=== PATIENT | male | born 1970 | race Caucasian/White ===

== ENCOUNTER 2016-12-04 14:34 | Inpatient (IN) | payer OTHER ==
[2016-12-04 15:09] VITALS: BMI 25.0
--- NOTE | 2016-12-04 17:15 | HP ---
CIWA Score - CIWA Score Nausea/Vomitin Muscle Tremors: 3 Anxiety: 3 Agitation: 3 Paroxysmal Sweats: 2 Orientation: 0-Oriented Tacttile Disturbances: 2-Mild Itch/Numbness/Burn Auditory Disturbances: 2-Mild Harshness/Frighten Visual Disturbances: 2-Mild Sensitivity Headache: 2-Mild CIWA-Ar Total Score: 22 Admission ROS BHS - HPI Chief Complaint: i need help to stop drinking alcohol and heroin,mmtp 90 mgs/day,last medicated [facility] 05/18 completed anxiety and insomnia has take home bottle tor 12/05/16 no significant period of sobriety Allergies/Adverse Reactions: Allergies Allergy/AdvReac Type Severity Reaction Status Date / Time No Known Allergies Allergy Verified 12/04/16 16:36 History of Present Illness: this 46 years old male with alcohol dependence,heroin abused,mmtp 90 mgs/day, seeking detox as mentioned Exam Limitations: No Limitations - Ebola screening Have you traveled outside of the country in the last 21 days: No Have you had contact with anyone from an Ebola affected area: No Have you been sick,other than usual withdrawal symptoms: No Do you have a fever: No - Review of Systems Constitutional: Loss of Appetite, Malaise, Night Sweats, Changes in sleep, Weakness EENT: reports: Nose Congestion Respiratory: reports: No Symptoms reported Cardiac: reports: No Symptoms Reported GI: reports: Nausea, Vomiting, Abdominal cramping : reports: No Symptoms Reported Musculoskeletal: reports: Back Pain, Muscle Pain Integumentary: reports: Dryness Neuro: reports: No Symptoms reported Endocrine: reports: No Symptoms Reported Hematology: reports: No Symptoms Reported Psychiatric: reports: No Sypmtoms Reported, Judgement Intact, Mood/Affect Appropiate, Orientated x3 (insomnia), Anxious Patient History - Patient Medical History Hx Anemia: No Hx Asthma: No Hx Chronic Obstructive Pulmonary Disease (COPD): No Hx Cancer: No Hx Cardiac Disorders: No Hx Congestive Heart Failure: No Hx Hypertension: No Hx Hypercholesterolemia: No Hx Pacemaker: No HX Cerebrovascular Accident: No Hx Seizures: No Hx Dementia: No Hx Diabetes: No Hx Gastrointestinal Disorders: No Hx Liver Disease: No Hx Genitourinary Disorders: No Hx Sexually Transmitted Disorders: No Hx Renal Disease (ESRD): No Hx Thyroid Disease: No Hx Human Immunodeficiency Virus (HIV): No (last 11/15 negative) Hx Hepatitis C: No Hx Depression: No Hx Suicide Attempt: No Hx Bipolar Disorder: No Hx Schizophrenia: No Other Medical History: anxiety,insomnia,no suicidal,no homicidal - Patient Surgical History Past Surgical History: No - PPD History Previous Implant?: Yes (HAS TAKE HOME BOTTLE FOR 12/05/16) Documented Results: Negative w/o proof Implanted On Prior [facility] Admission?: No PPD to be Administered?: Yes - Smoking Cessation Smoking history: Current every day smoker Have you smoked in the past 12 months: Yes Aproximately how many cigarettes per day: 10 Hx Chewing Tobacco Use: No Initiated information on smoking cessation: Yes 'Breaking Loose' booklet given: 12/04/16 - Substance & Tx. History Hx Alcohol Use: Yes Hx Substance Use: Yes Substance Use Type: Alcohol, Heroin Hx Substance Use Treatment: Yes (06/18 [facility]) - Substances Abused Heroin Route: Injection Frequency: 3-6 times per week Amount used: 5 bags Age of first use: 37 Date of Last Use: 12/03/16 Alcohol Route: Oral Frequency: Daily Amount used: beer(3-4 24 oz cans) Age of first use: 9 Date of Last Use: 12/04/16 Family Disease History - Family Disease History Family History: Denies Admission Physical Exam S - Vital Signs Vital Signs: Vital Signs - 24 hr 12/04/16 15:06 Temperature 97 F L Pulse Rate 81 Respiratory 20 Rate Blood Pressure 144/96 - Physical General Appearance: Yes: Moderate Distress, Tremorous, Irritable, Sweating, Anxious HEENTM: Yes: Normal ENT Inspection, Normocephalic, ERICA, Pharynx Normal Respiratory: Yes: Lungs Clear, Normal Breath Sounds, No Respiratory Distress Neck: Yes: Within Normal Limits, Supple, Trachea in good position Breast: Yes: Within Normal Limits Cardiology: Yes: Within Normal Limits, Regular Rhythm, Regular Rate, S1, S2 Abdominal: Yes: Within Normal Limits, Normal Bowel Sounds, Non Tender, Flat, Soft Genitourinary: Yes: Within Normal Limits Back: Yes: Muscle Spasm Musculoskeletal: Yes: Back pain, Muscle Pain Extremities: Yes: Tremors Neurological: Yes: Within Normal Limits, hat former II-XII NML intact, Fully Oriented, Alert, Motor Strength 5/5 Integumentary: Yes: Dry - Diagnostic (1) Alcohol dependence with uncomplicated withdrawal Current Visit: Yes Status: Acute (2) Anxiety Current Visit: Yes Status: Acute (3) Insomnia Current Visit: Yes Status: Acute (4) Methadone maintenance therapy patient Current Visit: Yes Status: Acute (5) Nicotine dependence Current Visit: Yes Status: Acute Cleared for Admission [facility] - Detox or Rehab [facility] Level of Care: Medically Managed Detox Regimen/Protocol: Librium [facility] Breath Alcohol Content Breath Alcohol Content: 0 Urine Drug Screen - Results Drug Screen Negative: No Urine Drug Screen Results: OPI-Opiates, BZO-Benzodiazepines, MTD-Methadone
[2016-12-04] MEDS ORDERED: MAGNESIUM HYDROX 2400MG/30ML ORAL SUSPENSION 30 ML CUP PO PRN (17:25)
[2016-12-04] MEDS ORDERED: P-EPHED 60MG/TRIPROLIDI 2.5MG TABLET PO PRN (17:25)
[2016-12-04] MEDS ORDERED: MAG HYDROX/AL HYDROX/SIMETH 30 ML UNIT-DOSE CUP PO PRN (17:25)
[2016-12-04] MEDS ORDERED: LOPERAMIDE HCL 2 MG CAPSULE PO PRN (17:25)
[2016-12-04] MEDS ORDERED: guaiFENesin/D-METHORPHAN HB 10 ML UNIT-DOSE CUPS PO PRN (17:25)
[2016-12-04] MEDS ORDERED: MAGNESIUM CITRATE 300 ML BOTTLE PO PRN (17:25)
[2016-12-04] MEDS ORDERED: ACETAMINOPHEN 325 MG TABLET (FP) PO PRN (17:25)
[2016-12-04] MEDS ORDERED: IBUPROFEN 400 MG TABLET (FP) PO PRN (17:25)
[2016-12-04] MEDS ORDERED: MENTHOL/PHENOL 1 EACH UD MM PRN (17:25)
[2016-12-04] MEDS ORDERED: chlordiazePOXIDE HCL 25 MG CAPSULE PO PRN (17:25)
[2016-12-04] MEDS: chlordiazePOXIDE HCL 25 MG CAPSULE PO SCH (22:23)
[2016-12-04] MEDS: diphenhydrAMINE HCL 50 MG CAPSULE PO PRN (22:23)
[2016-12-04] MEDS: THIAMINE HCL 100 MG TABLET (FP) PO SCH (22:23)
[2016-12-04 22:53] LABS: URINE APPEARANCE CLEAR; URINE BILIRUBIN NEGATIVE (NEGATIVE); URINE BLOOD NEGATIVE (NEGATIVE); URINE COLOR YELLOW; URINE GLUCOSE (UA) NEGATIVE (NEGATIVE); URINE KETONE 2+ (NEGATIVE); URINE LEUK ESTERASE NEGATIVE (NEGATIVE); URINE NITRITE NEGATIVE (NEGATIVE); URINE PROTEIN NEGATIVE (NEGATIVE); URINE UROBILINOGEN NEGATIVE mg/dL (0.2-1.0)
[2016-12-05] MEDS: chlordiazePOXIDE HCL 25 MG CAPSULE PO SCH ×4 (05:49→22:10)
[2016-12-05] MEDS ORDERED: METHADONE HCL 10 MG TABLET ONE (05:51)
[2016-12-05] MEDS ORDERED: METHADONE HCL 40 MG DISPERSABLE TABLET ONE (05:52)
[2016-12-05] MEDS ORDERED: METHADONE HCL 10 MG TABLET PO ONE (06:00)
[2016-12-05] MEDS ORDERED: METHADONE 80 MG, METHADONE 10 MG PO ONE (06:00)
[2016-12-05 09:26] LABS: MCH 29.3 pg (25.7-33.7); MCHC 33.8 g/dl (32.0-35.9); MEAN CELL VOLUME 86.5 fl (80-96); MEAN PLT VOLUME 8.6 fl (7.5-11.1); RDW 13.7 % (11.9-15.9); WHITE BLOOD COUNT 6.9 K/mm3 (4.0-10.0)
[2016-12-05 09:44] LABS: PLATELET COUNT 235 K/MM3 (134-434); PLATELET ESTIMATE ADEQUATE (NORMAL)
[2016-12-05 10:06] LABS: ALBUMIN 3.4 g/dl (3.4-5.0); ALK PHOS 94 U/L (45-117); ANION GAP 7 (8-16); BILIRUBIN,TOTAL 0.4 mg/dL (0.2-1.0); CALCIUM 8.6 mg/dL (8.5-10.1); CO2 28 mmol/L (21-32); CREATININE 0.7 mg/dL (0.7-1.3); GLUCOSE,RANDOM 96 mg/dL (74-106); SGOT/AST 26 U/L (15-37); SGPT/ALT 26 U/L (12-78)
[2016-12-05] MEDS: PRENATAL VITAMINS W/ FOLIC ACID TABLET (FP) PO SCH (10:21)
--- NOTE | 2016-12-05 12:51 | PN ---
S CIWA - CIWA Score Nausea/Vomitin Muscle Tremors: 4-Moderate,w/Arms Extend Anxiety: 4-Mod. Anxious/Guarded Agitation: 4-Moderately Restless Paroxysmal Sweats: 3 Orientation: 0-Oriented Tacttile Disturbances: 1-Very Mild Itch/Numbness Auditory Disturbances: 0-None Visual Disturbances: 0-None Headache: 2-Mild CIWA-Ar Total Score: 21 BHS Progress Note (SOAP) Subjective: Sweating, nausea, chills, tremors, interrupted sleep Objective: 12/05/16 12:49 Last Vital Signs Temp Pulse Resp BP Pulse Ox 98.2 F 73 18 113/71 12/05/16 10:13 12/05/16 10:13 12/05/16 10:13 12/05/16 10:13 Laboratory Tests 12/04/16 12/05/16 12/05/16 22:40 07:40 07:40 WBC 6.9 RBC 4.54 Hgb 13.3 Hct 39.3 MCV 86.5 MCH 29.3 MCHC 33.8 RDW 13.7 Plt Count 235 MPV 8.6 Platelet Estimate Adequate Platelet Comment No clumping noted Sodium 139 Potassium 3.8 Chloride 104 Carbon Dioxide 28 Anion Gap 7 L BUN 11 Creatinine 0.7 Creat Clearance w eGFR > 60 Random Glucose 96 Calcium 8.6 Total Bilirubin 0.4 AST 26 ALT 26 Alkaline Phosphatase 94 Total Protein 7.0 Albumin 3.4 Urine Color Yellow Urine Appearance Clear Urine pH 6.0 Ur Specific [place] 1.025 Urine Protein Negative Urine Glucose (UA) Negative Urine Ketones 2+ H Urine Blood Negative Urine Nitrite Negative Urine Bilirubin Negative Urine Urobilinogen Negative Ur Leukocyte Esterase Negative Labs noted Assessment: 12/05/16 12:49 Withdrawal symptoms Plan: Continue detox Encouraged to drink lots of water for hydration Admission PPD ordered
[2016-12-05] MEDS: THIAMINE HCL 100 MG TABLET (FP) PO SCH (22:10)
[2016-12-05] MEDS: diphenhydrAMINE HCL 50 MG CAPSULE PO PRN (22:11)
[2016-12-06] MEDS: chlordiazePOXIDE HCL 25 MG CAPSULE PO SCH ×3 (05:36→17:27)
[2016-12-06] MEDS ORDERED: METHADONE HCL 10 MG TABLET PO SCH (09:00)
[2016-12-06] MEDS ORDERED: METHADONE HCL 10 MG TABLET ONE (09:14)
[2016-12-06] MEDS ORDERED: METHADONE HCL 40 MG DISPERSABLE TABLET ONE (09:15)
[2016-12-06] MEDS: METHADONE 80 MG, METHADONE 10 MG PO SCH (09:27)
[2016-12-06] MEDS: PRENATAL VITAMINS W/ FOLIC ACID TABLET (FP) PO SCH (09:28)
--- NOTE | 2016-12-06 12:10 | PN ---
[facility] CIWA - CIWA Score Nausea/Vomitin-No Nausea/No Vomiting Muscle Tremors: 3 Anxiety: 4-Mod. Anxious/Guarded Agitation: 1-Slight > Activity Paroxysmal Sweats: 3 Orientation: 0-Oriented Tacttile Disturbances: 2-Mild Itch/Numbness/Burn Auditory Disturbances: 1-Very Mild Visual Disturbances: 3-Moderate Sensitivity Headache: 0-None Present CIWA-Ar Total Score: 17 BHS Progress Note (SOAP) Subjective: Tremors, Interrupted sleep, Sweating, Diarrhea,Stomach Cramping, Body Aches. Objective: PT. A & O X 3. NO ACUTE DISTRESS. 12/06/16 12:08 Vital Signs Temperature 97.2 F L 12/06/16 09:02 Pulse Rate 59 L 12/06/16 09:02 Respiratory Rate 18 12/06/16 09:02 Blood Pressure 121/79 12/06/16 09:02 O2 Sat by Pulse Oximetry (%) Laboratory Tests 12/04/16 12/05/16 12/05/16 22:40 07:40 07:40 WBC 6.9 RBC 4.54 Hgb 13.3 Hct 39.3 MCV 86.5 MCH 29.3 MCHC 33.8 RDW 13.7 Plt Count 235 MPV 8.6 Platelet Estimate Adequate Platelet Comment No clumping noted Sodium 139 Potassium 3.8 Chloride 104 Carbon Dioxide 28 Anion Gap 7 L BUN 11 Creatinine 0.7 Creat Clearance w eGFR > 60 Random Glucose 96 Calcium 8.6 Total Bilirubin 0.4 AST 26 ALT 26 Alkaline Phosphatase 94 Total Protein 7.0 Albumin 3.4 Urine Color Yellow Urine Appearance Clear Urine pH 6.0 Ur Specific [place] 1.025 Urine Protein Negative Urine Glucose (UA) Negative Urine Ketones 2+ H Urine Blood Negative Urine Nitrite Negative Urine Bilirubin Negative Urine Urobilinogen Negative Ur Leukocyte Esterase Negative RPR Titer 12/05/16 07:40 WBC RBC Hgb Hct MCV MCH MCHC RDW Plt Count MPV Platelet Estimate Platelet Comment Sodium Potassium Chloride Carbon Dioxide Anion Gap BUN Creatinine Creat Clearance w eGFR Random Glucose Calcium Total Bilirubin AST ALT Alkaline Phosphatase Total Protein Albumin Urine Color Urine Appearance Urine pH Ur Specific [place] Urine Protein Urine Glucose (UA) Urine Ketones Urine Blood Urine Nitrite Urine Bilirubin Urine Urobilinogen Ur Leukocyte Esterase RPR Titer Nonreactive LABS NOTED. Assessment: 12/06/16 12:09 WITHDRAWAL SYMPTOMS. Plan: CONTINUE DETOX.
--- NOTE | 2016-12-06 16:43 | CONSULT ---
[facility] Psychiatric Consult - Data Date of interview: 12/06/16 Admission source: [facility] Identifying data: First admission to [facility] for this 46 y/o male seeking detox treatment on for opiod and alcohol dependence.Patient is ,a father of three,domiciled (lives with an aunt),unemployed and supported on food stamps. Substance Abuse History: Discussed in session.Mr Bazan confirms this report : Smoking Cessation. Smoking history: Current every day smoker. Have you smoked in the past 12 months: Yes. Aproximately how many cigarettes per day: 10. Hx Chewing Tobacco Use: No. Initiated information on smoking cessation: Yes. ' Breaking Loose' booklet given: 12/04/16. - Substance & Tx. History. Hx Alcohol Use: Yes. Hx Substance Use: Yes. Substance Use Type: Alcohol, Heroin. Hx Substance Use Treatment: Yes (06/18 [facility]). - Substances Abused. Heroin. Route: Injection. Frequency: 3-6 times per week. Amount used: 5 bags. Age of first use: 37. Date of Last Use: 12/03/16. Alcohol. Route: Oral. Frequency: Daily. Amount used: beer(3-4 24 oz cans). Age of first use: 9. Date of Last Use: 12/04/16 Medical History: History of skin cancer. Psychiatric History: No reported history of psychiatric hospitalizations.Mr Bazan is currently on methadone maintenance (daily dose = 90 mg). Physical/Sexual Abuse/Trauma History: Patient denies. Additional Comment: Urine Drug Screen Results: OPI-Opiates, BZO-Benzodiazepines , MTD-Methadone.Noted. Mental Status Exam - Mental Status Exam Alert and Oriented to: Time, Place, Person Cognitive Function: Good Patient Appearance: Disheveled Mood: Nervous, Withdrawn Affect: Constricted Patient Behavior: Fatigued, Appropriate, Cooperative Speech Pattern: Clear Voice Loudness: Normal Thought Process: Intact, Goal Oriented Thought Disorder: Not Present Hallucinations: Denies Suicidal Ideation: Denies Homicidal Ideation: Denies Insight/Judgement: Fair Sleep: Poorly, Difficulty falling asleep Appetite: Fair Muscle strength/Tone: Normal Gait/Station: Normal Psychiatric Findings - Problem List ([place] 1, 2,3) (1) Alcohol dependence with uncomplicated withdrawal Status: Acute (2) Opioid dependence on agonist therapy Status: Acute (3) Nicotine dependence Status: Acute Qualifiers: Nicotine product type: cigarettes Substance use status: in withdrawal Qualified Code(s): F17.213 - Nicotine dependence, cigarettes, with withdrawal (4) Substance induced mood disorder Status: Acute (5) Insomnia Status: Acute - Initial Treatment Plan Initial Treatment Plan: Psychoeducation.Detoxification.Ambien 10 mg po hs prn.Patient is made aware of potential for parasomnias.
[2016-12-06] MEDS: THIAMINE HCL 100 MG TABLET (FP) PO SCH (22:34)
[2016-12-06] MEDS: chlordiazePOXIDE 5 MG CAPSULE PO SCH (22:34)
[2016-12-06] MEDS: ZOLPIDEM TARTRATE 10 MG TABLET (PARK CARE ONLY) PO PRN (22:34)
[2016-12-07] MEDS ORDERED: METHADONE HCL 40 MG DISPERSABLE TABLET ONE (04:42)
[2016-12-07] MEDS ORDERED: METHADONE HCL 10 MG TABLET ONE (04:42)
[2016-12-07] MEDS: METHADONE 80 MG, METHADONE 10 MG PO SCH (05:05)
[2016-12-07] MEDS: chlordiazePOXIDE 5 MG CAPSULE PO SCH ×3 (05:05→17:13)
[2016-12-07] MEDS: PRENATAL VITAMINS W/ FOLIC ACID TABLET (FP) PO SCH (10:06)
--- NOTE | 2016-12-07 10:33 | PN ---
S Progress Note (SOAP) Subjective: DECREASED ANXIETY,SWEATS,TREMORS. Objective: 12/07/16 10:32 Vital Signs Temperature 97.3 F L 12/07/16 09:12 Pulse Rate 82 12/07/16 09:12 Respiratory Rate 18 12/07/16 09:12 Blood Pressure 147/96 12/07/16 09:12 O2 Sat by Pulse Oximetry (%) Laboratory Last Values WBC 6.9 K/mm3 (4.0-10.0) 12/05/16 07:40 RBC 4.54 M/mm3 (4.00-5.60) 12/05/16 07:40 Hgb 13.3 GM/dL (11.7-16.9) 12/05/16 07:40 Hct 39.3 % (35.4-49) 12/05/16 07:40 MCV 86.5 fl (80-96) 12/05/16 07:40 MCH 29.3 pg (25.7-33.7) 12/05/16 07:40 MCHC 33.8 g/dl (32.0-35.9) 12/05/16 07:40 RDW 13.7 % (11.9-15.9) 12/05/16 07:40 Plt Count 235 K/MM3 (134-434) 12/05/16 07:40 MPV 8.6 fl (7.5-11.1) 12/05/16 07:40 Platelet Estimate Adequate (NORMAL) 12/05/16 07:40 Platelet Comment No clumping noted 12/05/16 07:40 Sodium 139 mmol/L (136-145) 12/05/16 07:40 Potassium 3.8 mmol/L (3.5-5.1) 12/05/16 07:40 Chloride 104 mmol/L (98-107) 12/05/16 07:40 Carbon Dioxide 28 mmol/L (21-32) 12/05/16 07:40 Anion Gap 7 (8-16) L 12/05/16 07:40 BUN 11 mg/dL (7-18) 12/05/16 07:40 Creatinine 0.7 mg/dL (0.7-1.3) 12/05/16 07:40 Creat Clearance w eGFR > 60 (>60) 12/05/16 07:40 Random Glucose 96 mg/dL (74-106) 12/05/16 07:40 Calcium 8.6 mg/dL (8.5-10.1) 12/05/16 07:40 Total Bilirubin 0.4 mg/dL (0.2-1.0) 12/05/16 07:40 AST 26 U/L (15-37) 12/05/16 07:40 ALT 26 U/L (12-78) 12/05/16 07:40 Alkaline Phosphatase 94 U/L (45-117) 12/05/16 07:40 Total Protein 7.0 g/dl (6.4-8.2) 12/05/16 07:40 Albumin 3.4 g/dl (3.4-5.0) 12/05/16 07:40 Urine Color Yellow 12/04/16 22:40 Urine Appearance Clear 12/04/16 22:40 Urine pH 6.0 (5.0-8.0) 12/04/16 22:40 Ur Specific [place] 1.025 (1.005-1.025) 12/04/16 22:40 Urine Protein Negative (NEGATIVE) 12/04/16 22:40 Urine Glucose (UA) Negative (NEGATIVE) 12/04/16 22:40 Urine Ketones 2+ (NEGATIVE) H 12/04/16 22:40 Urine Blood Negative (NEGATIVE) 12/04/16 22:40 Urine Nitrite Negative (NEGATIVE) 12/04/16 22:40 Urine Bilirubin Negative (NEGATIVE) 12/04/16 22:40 Urine Urobilinogen Negative mg/dL (0.2-1.0) 12/04/16 22:40 Ur Leukocyte Esterase Negative (NEGATIVE) 12/04/16 22:40 RPR Titer Nonreactive (NONREACTIVE) 12/05/16 07:40 Assessment: 12/07/16 10:33 WITHDRAWAL SX Plan: CONTINUE DETOX
[2016-12-07] MEDS: ZOLPIDEM TARTRATE 10 MG TABLET (PARK CARE ONLY) PO PRN (22:06)
[2016-12-07] MEDS: chlordiazePOXIDE HCL 10 MG CAPSULE PO SCH (22:06)
[2016-12-07] MEDS: THIAMINE HCL 100 MG TABLET (FP) PO SCH (22:06)
[2016-12-08] MEDS ORDERED: METHADONE HCL 40 MG DISPERSABLE TABLET ONE (04:48)
[2016-12-08] MEDS ORDERED: METHADONE HCL 10 MG TABLET ONE (04:48)
[2016-12-08] MEDS: METHADONE 80 MG, METHADONE 10 MG PO SCH (05:14)
[2016-12-08] MEDS: chlordiazePOXIDE HCL 10 MG CAPSULE PO SCH (05:43)
[2016-12-08 06:24] VITALS: BP 98/62; PULSE 64; TEMP 97
--- NOTE | 2016-12-08 13:16 | DS ---
[facility] Detox Discharge Summary Admission Date: 12/04/16 Discharge Date: 12/08/16 - History Present History: Alcohol Dependence, MMTP Additional Comments: DETOX COMPLETED. PT LEFT EARLIER THIS MORNING. PT TO F/U WITH PCP AT [facility] Pertinent Past History: ANXIETY DEPRESSION INSOMNIA - Physical Exam Results Vital Signs: Vital Signs Temperature 97 F L 12/08/16 06:23 Pulse Rate 64 12/08/16 06:23 Respiratory Rate 18 12/08/16 06:23 Blood Pressure 98/62 12/08/16 06:23 O2 Sat by Pulse Oximetry (%) Pertinent Admission Physical Exam Findings: WITHDRAWAL SX Laboratory Last Values WBC 6.9 K/mm3 (4.0-10.0) 12/05/16 07:40 RBC 4.54 M/mm3 (4.00-5.60) 12/05/16 07:40 Hgb 13.3 GM/dL (11.7-16.9) 12/05/16 07:40 Hct 39.3 % (35.4-49) 12/05/16 07:40 MCV 86.5 fl (80-96) 12/05/16 07:40 MCH 29.3 pg (25.7-33.7) 12/05/16 07:40 MCHC 33.8 g/dl (32.0-35.9) 12/05/16 07:40 RDW 13.7 % (11.9-15.9) 12/05/16 07:40 Plt Count 235 K/MM3 (134-434) 12/05/16 07:40 MPV 8.6 fl (7.5-11.1) 12/05/16 07:40 Platelet Estimate Adequate (NORMAL) 12/05/16 07:40 Platelet Comment No clumping noted 12/05/16 07:40 Sodium 139 mmol/L (136-145) 12/05/16 07:40 Potassium 3.8 mmol/L (3.5-5.1) 12/05/16 07:40 Chloride 104 mmol/L (98-107) 12/05/16 07:40 Carbon Dioxide 28 mmol/L (21-32) 12/05/16 07:40 Anion Gap 7 (8-16) L 12/05/16 07:40 BUN 11 mg/dL (7-18) 12/05/16 07:40 Creatinine 0.7 mg/dL (0.7-1.3) 12/05/16 07:40 Creat Clearance w eGFR > 60 (>60) 12/05/16 07:40 Random Glucose 96 mg/dL (74-106) 12/05/16 07:40 Calcium 8.6 mg/dL (8.5-10.1) 12/05/16 07:40 Total Bilirubin 0.4 mg/dL (0.2-1.0) 12/05/16 07:40 AST 26 U/L (15-37) 12/05/16 07:40 ALT 26 U/L (12-78) 12/05/16 07:40 Alkaline Phosphatase 94 U/L (45-117) 12/05/16 07:40 Total Protein 7.0 g/dl (6.4-8.2) 12/05/16 07:40 Albumin 3.4 g/dl (3.4-5.0) 12/05/16 07:40 Urine Color Yellow 12/04/16 22:40 Urine Appearance Clear 12/04/16 22:40 Urine pH 6.0 (5.0-8.0) 12/04/16 22:40 Ur Specific [place] 1.025 (1.005-1.025) 12/04/16 22:40 Urine Protein Negative (NEGATIVE) 12/04/16 22:40 Urine Glucose (UA) Negative (NEGATIVE) 12/04/16 22:40 Urine Ketones 2+ (NEGATIVE) H 12/04/16 22:40 Urine Blood Negative (NEGATIVE) 12/04/16 22:40 Urine Nitrite Negative (NEGATIVE) 12/04/16 22:40 Urine Bilirubin Negative (NEGATIVE) 12/04/16 22:40 Urine Urobilinogen Negative mg/dL (0.2-1.0) 12/04/16 22:40 Ur Leukocyte Esterase Negative (NEGATIVE) 12/04/16 22:40 RPR Titer Nonreactive (NONREACTIVE) 12/05/16 07:40 - Treatment Hospital Course: Detox Protocol Followed, Detoxed Safely, Responded well Patient has Accepted a Rehab Referral to: REFERRED TO [facility], [facility] - Medication Discharge Medications: Ambulatory Orders Methadone [Dolophine -] 90 mg PO DAILY 12/04/16 - Diagnosis (1) Alcohol dependence with uncomplicated withdrawal Status: Acute (2) Methadone maintenance therapy patient Status: Acute (3) Nicotine dependence Status: Acute Qualifiers: Nicotine product type: cigarettes Substance use status: in withdrawal Qualified Code(s): F17.213 - Nicotine dependence, cigarettes, with withdrawal (4) Insomnia Status: Acute (5) Substance induced mood disorder Status: Acute - AMA Did Patient Leave Against Medical Advice: No
--- NOTE | 2016-12-08 14:55 | EKG ---
Test Reason : Blood Pressure : / mmHG Vent. Rate : 053 BPM Atrial Rate : 053 BPM P-R Int : 156 ms QRS Dur : 104 ms QT Int : 486 ms P-R-T Axes : 052 -03 026 degrees QTc Int : 456 ms SINUS BRADYCARDIA WITH SINUS ARRHYTHMIA INCOMPLETE RIGHT BUNDLE BRANCH BLOCK BORDERLINE ECG NO PREVIOUS ECGS AVAILABLE Confirmed by ALEXANDER BUSTOS MD ([id number]) on 12/08/2016 2:54:31 PM Referred By: Confirmed By:ALEXANDER BUSTOS MD
== END 2016-12-08 06:40 | disposition home or self-care (01) | DRG 773 ==
LOC: YASAS 14:34 → Y3N 17:15
PROVIDERS: ADMIT Internal Medicine; ATTEND Internal Medicine
PROC: HZ2ZZZZ Detoxification Services for Substance Abuse Treatment (ICD-10-PCS; principal; 2016-12-04)
DX: F10.230 Alcohol dependence with withdrawal, uncomplicated (principal); F11.20 Opioid dependence, uncomplicated; F17.210 Nicotine dependence, cigarettes, uncomplicated; F19.24 Other psychoactive substance dependence with psychoactive substance-induced mood disorder; F41.9 Anxiety disorder, unspecified; G47.00 Insomnia, unspecified; Z85.828 Personal history of other malignant neoplasm of skin; Z59.0 Homelessness
CPT/HCPCS: 36415; 80053; 81003; 85027; 86593; 93005; 93010

== ENCOUNTER 2017-09-27 13:37 | Inpatient (IN) | payer OTHER ==
[2017-09-27 15:52] VITALS: BMI 29.7
--- NOTE | 2017-09-27 18:23 | HP ---
CIWA Score - CIWA Score Nausea/Vomitin Muscle Tremors: 2 Anxiety: 3 Agitation: 3 Paroxysmal Sweats: 2 Orientation: 0-Oriented Tacttile Disturbances: 2-Mild Itch/Numbness/Burn (numbness on both hands) Auditory Disturbances: 0-None Visual Disturbances: 0-None Headache: 0-None Present CIWA-Ar Total Score: 15 Admission ROS BHS - HPI Chief Complaint: withdrawal symptoms Allergies/Adverse Reactions: Allergies Allergy/AdvReac Type Severity Reaction Status Date / Time No Known Allergies Allergy Verified 12/04/16 16:36 History of Present Illness: Patient is a 47 yo male with hx of IV heroin, alcohol, xanax, klonopin, an alcohol. MMTP at [facility] on 15 mg dose, patient was given take home bottles for 09/25/17 and 09/26/17 and reports did not attend MMTP program today to get medicated. PMHX: right achilles chronic pain, depression, anxiety. Denies suicidal / homicidal ideation or suicide attempts. Exam Limitations: No Limitations - Ebola screening Have you traveled outside of the country in the last 21 days: No Have you had contact with anyone from an Ebola affected area: No Have you been sick,other than usual withdrawal symptoms: No Do you have a fever: No - Review of Systems Constitutional: Chills, Loss of Appetite, Changes in sleep EENT: reports: No Symptoms Reported Respiratory: reports: No Symptoms reported Cardiac: reports: No Symptoms Reported GI: reports: Diarrhea, Nausea, Poor Fluid Intake, Vomiting : reports: No Symptoms Reported Musculoskeletal: reports: No Symptoms Reported Integumentary: reports: No Symptoms Reported Neuro: reports: See HPI, Numbness Endocrine: reports: Increased Thirst Hematology: reports: No Symptoms Reported Psychiatric: reports: Orientated x3, Agitated Other Systems: Reviewed and Negative Patient History - Patient Medical History Hx Anemia: No Hx Asthma: No Hx Chronic Obstructive Pulmonary Disease (COPD): No Hx Cancer: No Hx Cardiac Disorders: No Hx Congestive Heart Failure: No Hx Hypertension: No Hx Hypercholesterolemia: No Hx Pacemaker: No HX Cerebrovascular Accident: No Hx Seizures: No Hx Dementia: No Hx Diabetes: No Hx Gastrointestinal Disorders: No Hx Liver Disease: No Hx Genitourinary Disorders: No Hx Sexually Transmitted Disorders: Yes (chlamydia ) Hx Renal Disease (ESRD): No Hx Thyroid Disease: No Hx Human Immunodeficiency Virus (HIV): No ( Last tested a month ago ) Hx Hepatitis C: No Hx Depression: Yes Hx Suicide Attempt: No Hx Bipolar Disorder: No Hx Schizophrenia: No - Patient Surgical History Past Surgical History: No Other Surgical History: skin cancer 30 years ago - PPD History Previous Implant?: Yes Documented Results: Negative w/proof Date: 12/07/16 PPD to be Administered?: No - Smoking Cessation Smoking history: Current every day smoker Have you smoked in the past 12 months: Yes Aproximately how many cigarettes per day: 10 Hx Chewing Tobacco Use: No Initiated information on smoking cessation: Yes 'Breaking Loose' booklet given: 09/27/17 - Substance & Tx. History Hx Alcohol Use: Yes Hx Substance Use: Yes Substance Use Type: Alcohol, Heroin, Opiates, Tranquilizers Hx Substance Use Treatment: Yes ([facility] 12/04/17 - 12/08/16) - Substances Abused Heroin Route: Injection Frequency: Daily Amount used: 5 bags Age of first use: 37 Date of Last Use: 09/26/17 Alprazolam (Xanax) Route: Oral Frequency: Daily Amount used: 2 - 4 mg Age of first use: 30 Date of Last Use: 09/25/17 Benzodiazepine (Klonopin) Route: Oral Frequency: Daily Amount used: 2 -4 mg Age of first use: 47 Date of Last Use: 09/24/17 Alcohol Route: Oral Frequency: Daily Amount used: 4 x 12 oz Age of first use: 9 Date of Last Use: 09/26/17 Family Disease History - Family Disease History Family History: Unable to Obtain Admission Physical Exam [facility] - Vital Signs Vital Signs: Vital Signs - 24 hr 09/27/17 15:50 Temperature 96.9 F L Pulse Rate 63 Respiratory 18 Rate Blood Pressure 102/60 - Physical General Appearance: Yes: Appropriately Dressed, Irritable, Sweating, Anxious HEENTM: Yes: EOMI, Hearing grossly Normal, Normal ENT Inspection, Normocephalic , Normal Voice, ERICA, Pharynx Normal, Tm's normal, Rhinorrhea Respiratory: Yes: Chest Non-Tender, Lungs Clear, Normal Breath Sounds, No Respiratory Distress, No Accessory Muscle Use Neck: Yes: Within Normal Limits Breast: Yes: Breast Exam Deferred Cardiology: Yes: Regular Rhythm, Regular Rate Abdominal: Yes: Normal Bowel Sounds, Non Tender, Flat, Soft Genitourinary: Yes: Within Normal Limits Back: Yes: Normal Inspection Musculoskeletal: Yes: full range of Motion, Gait Steady, Pelvis Stable, Other ( ambulates with cane) Extremities: Yes: Normal Capillary Refill, Normal Inspection, Normal Range of Motion, Non-Tender Neurological: Yes: publications inspector II-XII NML intact, Fully Oriented, Alert, Motor Strength 5/5, Depressed Affect Integumentary: Yes: Normal Color, Warm, Diaphoresis Lymphatic: Yes: Within Normal Limits - Diagnostic (1) Sedative, hypnotic or anxiolytic dependence with withdrawal, unspecified Current Visit: Yes Status: Acute (2) IV drug user Current Visit: Yes Status: Acute (3) Alcohol dependence with uncomplicated withdrawal Current Visit: Yes Status: Acute (4) Anxiety Current Visit: Yes Status: Acute (5) Nicotine dependence Current Visit: Yes Status: Acute Qualifiers: Nicotine product type: cigarettes Substance use status: in withdrawal Qualified Code(s): F17.213 - Nicotine dependence, cigarettes, with withdrawal (6) Opioid dependence on agonist therapy Current Visit: Yes Status: Acute Comment: Methadone 15 mg at [facility] dose pending verification Cleared for Admission [facility] - Detox or Rehab [facility] Level of Care: Medically Managed Detox Regimen/Protocol: Valium [facility] Breath Alcohol Content Breath Alcohol Content: 0 Urine Drug Screen - Results Drug Screen Negative: No Urine Drug Screen Results: OPI-Opiates, BZO-Benzodiazepines, MTD-Methadone
[2017-09-27] MEDS ORDERED: P-EPHED 60MG/TRIPROLIDI 2.5MG TABLET PO PRN (18:38)
[2017-09-27] MEDS ORDERED: MAG HYDROX/AL HYDROX/SIMETH 30 ML UNIT-DOSE CUP PO PRN (18:38)
[2017-09-27] MEDS ORDERED: NICOTINE POLACRILEX 2 MG GUM BC PRN (18:38)
[2017-09-27] MEDS ORDERED: diazePAM 5 MG TABLET PO ONE (18:38)
[2017-09-27] MEDS ORDERED: MAGNESIUM CITRATE 300 ML BOTTLE PO PRN (18:38)
[2017-09-27] MEDS ORDERED: MAGNESIUM HYDROX 2400MG/30ML ORAL SUSPENSION 30 ML CUP PO PRN (18:38)
[2017-09-27] MEDS ORDERED: IBUPROFEN 400 MG TABLET (FP) PO PRN (18:38)
[2017-09-27] MEDS ORDERED: guaiFENesin/D-METHORPHAN HB 10 ML UNIT-DOSE CUPS PO PRN (18:38)
[2017-09-27] MEDS ORDERED: hydrOXYzine PAMOATE 50 MG CAPSULE (FP) PO PRN (18:38)
[2017-09-27] MEDS ORDERED: ACETAMINOPHEN 325 MG TABLET (FP) PO PRN (18:38)
[2017-09-27] MEDS ORDERED: MENTHOL/PHENOL 1 EACH UD MM PRN (18:38)
[2017-09-27] MEDS ORDERED: MELATONIN 5 MG TABLETS PO PRN (22:00)
[2017-09-27] MEDS: THIAMINE HCL 100 MG TABLET (FP) PO SCH (23:15)
[2017-09-27] MEDS: diazePAM 5 MG TABLET PO SCH (23:15)
[2017-09-28 02:55] LABS: URINE APPEARANCE CLOUDY; URINE BILIRUBIN NEGATIVE (<2.0 mg/dL); URINE COLOR AMBER; URINE GLUCOSE (UA) NEGATIVE (NEGATIVE); URINE KETONE TRACE (NEGATIVE); URINE LEUK ESTERASE NEGATIVE (NEGATIVE); URINE NITRITE NEGATIVE (NEGATIVE)
[2017-09-28 03:05] LABS: URINE PROTEIN 1+ (NEGATIVE)
[2017-09-28 03:23] LABS: URINE BACTERIA MANY /hpf (NONE SEEN); URINE HYALINE CAST 146 /lpf; URINE MUCUS MANY
[2017-09-28] MEDS: diazePAM 5 MG TABLET PO SCH ×3 (05:09→22:03)
[2017-09-28] MEDS: diazePAM 5 MG TABLET PO PRN ×3 (06:49→18:19)
[2017-09-28] MEDS: METHADONE HCL 5 MG TABLET PO SCH (10:00)
[2017-09-28] MEDS: PRENATAL VITAMINS W/ FOLIC ACID TABLET (FP) PO SCH (10:00)
[2017-09-28] MEDS: NICOTINE 14 MG/24 HOURS TOPICAL PATCH TD SCH (10:02)
[2017-09-28 10:39] LABS: HEMATOCRIT 41.6 % (35.4-49); HEMOGLOBIN 14.3 GM/dL (11.7-16.9); MCH 29.8 pg (25.7-33.7); MCHC 34.4 g/dl (32.0-35.9); MEAN CELL VOLUME 86.6 fl (80-96); MEAN PLT VOLUME 8.3 fl (7.5-11.1); PLATELET COUNT 274 K/MM3 (134-434); RDW 14.2 % (11.9-15.9); WHITE BLOOD COUNT 8.5 K/mm3 (4.0-10.0)
[2017-09-28 10:47] LABS: ALBUMIN 4.1 g/dl (3.4-5.0); ANION GAP 9 (8-16); BLOOD UREA NITROGEN 14 mg/dL (7-18); CALCIUM 9.1 mg/dL (8.5-10.1); CHLORIDE 103 mmol/L (98-107); CO2 26 mmol/L (21-32); GLUCOSE,RANDOM 101 mg/dL (74-106); POTASSIUM 4.1 mmol/L (3.5-5.1); SGOT/AST 15 U/L (15-37); SGPT/ALT 21 U/L (12-78); SODIUM 138 mmol/L (136-145)
[2017-09-28 10:49] LABS: ALK PHOS 115 U/L (45-117); BILIRUBIN,TOTAL 0.6 mg/dL (0.2-1.0); CREATININE 0.9 mg/dL (0.7-1.3); TOT PROT 8.6 g/dl (6.4-8.2)
--- NOTE | 2017-09-28 13:24 | CONSULT ---
[facility] Psychiatric Consult - Data Date of interview: 09/28/17 Admission source: [facility] Identifying data: First admission to [facility] for this 46 y/o male seeking detox treatment on for opiod and alcohol dependence.Patient is ,a father of three,domiciled (lives with an aunt),unemployed and supported on food stamps. Substance Abuse History: Smoking history: Current every day smoker. Have you smoked in the past 12 months: Yes. Aproximately how many cigarettes per day: 10. Hx Chewing Tobacco Use: No. Initiated information on smoking cessation: Yes. 'Breaking Loose' booklet given: 09/27/17. - Substance & Tx. History. Hx Alcohol Use: Yes. Hx Substance Use: Yes. Substance Use Type: Alcohol, Heroin, Opiates, Tranquilizers. Hx Substance Use Treatment: Yes ([facility] 12/04/17 - 12/08/16) . - Substances Abused. Heroin. Route: Injection. Frequency: Daily. Amount used: 5 bags. Age of first use: 37. Date of Last Use: 09/26/17. Alprazolam (Xanax). Route: Oral. Frequency: Daily. Amount used: 2 - 4 mg. Age of first use: 30. Date of Last Use: 09/25/17. Benzodiazepine (Klonopin) . Route: Oral. Frequency: Daily. Amount used: 2 -4 mg. Age of first use: 47. Date of Last Use: 09/24/17. Alcohol. Route: Oral. Frequency: Daily. Amount used: 4 x 12 oz. Age of first use: 9. Date of Last Use: 09/26/17 Medical History: No reported history of psychiatric hospitalizations.Mr Bazan is currently on methadone maintenance (daily dose = 15 mg) At [facility] program in [facility]. Psychiatric History: Patient denies. Physical/Sexual Abuse/Trauma History: Patient denies. Additional Comment: Urine Drug Screen Results: OPI-Opiates, BZO-Benzodiazepines , MTD-Methadone.Noted. Mental Status Exam - Mental Status Exam Alert and Oriented to: Time, Place, Person Cognitive Function: Good Patient Appearance: Well Groomed Mood: Nervous, Withdrawn, Anxious Affect: Mood Congruent Patient Behavior: Fatigued, Cooperative Speech Pattern: Clear Voice Loudness: Normal Thought Process: Intact, Goal Oriented Thought Disorder: Not Present Hallucinations: Denies Suicidal Ideation: Denies Homicidal Ideation: Denies Insight/Judgement: Poor Sleep: Poorly, Difficulty falling asleep Appetite: Good Muscle strength/Tone: Normal Gait/Station: Other (not observed ; patient stayed in bed for duration of interview) Psychiatric Findings - Problem List ([place] 1, 2,3) (1) Opioid dependence on agonist therapy Current Visit: Yes Status: Acute (2) Alcohol dependence with uncomplicated withdrawal Current Visit: Yes Status: Acute (3) Sedative, hypnotic or anxiolytic dependence with withdrawal, unspecified Current Visit: Yes Status: Acute (4) Nicotine dependence Current Visit: Yes Status: Acute Qualifiers: Nicotine product type: cigarettes Substance use status: in withdrawal Qualified Code(s): F17.213 - Nicotine dependence, cigarettes, with withdrawal (5) Insomnia Current Visit: Yes Status: Acute - Initial Treatment Plan Initial Treatment Plan: Psychoeducation.Sleep hygiene.Detoxification.Ambien 10 mg po hs prn.Patient is made aware of the risk of parasomnias.Agrees to this careplan.Observation.
--- NOTE | 2017-09-28 13:28 | EKG ---
Test Reason : Blood Pressure : / mmHG Vent. Rate : 061 BPM Atrial Rate : 061 BPM P-R Int : 162 ms QRS Dur : 106 ms QT Int : 454 ms P-R-T Axes : 046 009 018 degrees QTc Int : 457 ms SINUS RHYTHM WITH MARKED SINUS ARRHYTHMIA WITH OCCASIONAL PREMATURE VENTRICULAR COMPLEXES INCOMPLETE RIGHT BUNDLE BRANCH BLOCK BORDERLINE ECG WHEN COMPARED WITH ECG OF 04-DEC-2016 17:40, PREMATURE VENTRICULAR COMPLEXES ARE NOW PRESENT Confirmed by LUDMILA PIMENTEL, CARON ([id number]) on 09/28/2017 1:28:12 PM Referred By: Confirmed By:CARON KEYS MD
--- NOTE | 2017-09-28 13:38 | PN ---
S CIWA - CIWA Score Nausea/Vomitin Muscle Tremors: 3 Anxiety: 4-Mod. Anxious/Guarded Agitation: 4-Moderately Restless Paroxysmal Sweats: No Perspiration Orientation: 0-Oriented Tacttile Disturbances: 2-Mild Itch/Numbness/Burn Auditory Disturbances: 0-None Visual Disturbances: 0-None Headache: 0-None Present CIWA-Ar Total Score: 18 BHS Progress Note (SOAP) Subjective: Diarrhea, Vomiting, Stomach Cramping, Tremors, body Aches. Objective: PATIENT A & O X 3, OBSERVED AMBULATING ON UNIT WITH ASSISTANCE OF A CANE. NO ACUTE DISTRESS. 09/28/17 13:34 Vital Signs Temperature 97.5 F L 09/28/17 09:03 Pulse Rate 76 09/28/17 09:03 Respiratory Rate 18 09/28/17 09:03 Blood Pressure 141/87 09/28/17 09:03 O2 Sat by Pulse Oximetry (%) Laboratory Tests 09/27/17 09/28/17 09/28/17 21:04 07:30 07:30 WBC 8.5 RBC 4.80 Hgb 14.3 Hct 41.6 MCV 86.6 MCH 29.8 MCHC 34.4 RDW 14.2 Plt Count 274 MPV 8.3 Sodium 138 Potassium 4.1 Chloride 103 Carbon Dioxide 26 Anion Gap 9 BUN 14 D Creatinine 0.9 D Creat Clearance w eGFR > 60 Random Glucose 101 Calcium 9.1 Total Bilirubin 0.6 D AST 15 D ALT 21 Alkaline Phosphatase 115 D Total Protein 8.6 H D Albumin 4.1 D Urine Color Grisel Urine Appearance Cloudy Urine pH 5.0 Ur Specific [place] 1.021 Urine Protein 1+ H Urine Glucose (UA) Negative Urine Ketones Trace H Urine Blood Negative Urine Nitrite Negative Urine Bilirubin Negative Urine Urobilinogen 2.0 Ur Leukocyte Esterase Negative Urine WBC (Auto) 22 Urine RBC (Auto) 45 Urine Bacteria Many Hyaline Casts 146 Urine Mucus Many LABS NOTED. RPR RESULT PENDING. 09/28/17 13:36 09/28/17 13:37 Assessment: 09/28/17 13:35 WITHDRAWAL SYMPTOMS. Plan: CONTINUE DETOX. PRN IMMODIUM PO FOR DIARRHEA. PRN ZOFRAN SL FOR NAUSEA / VOMITING. INCREASE DAILY PO FLUID INTAKE.
[2017-09-28] MEDS: LOPERAMIDE HCL 2 MG CAPSULE PO PRN (14:08)
[2017-09-28] MEDS: ONDANSETRON *ODT* 4 MG TABLET SL PRN ×2 (14:08→22:04)
[2017-09-28] MEDS: THIAMINE HCL 100 MG TABLET (FP) PO SCH (22:03)
[2017-09-29] MEDS: diazePAM 5 MG TABLET PO PRN ×3 (05:03→20:32)
[2017-09-29] MEDS: METHADONE HCL 5 MG TABLET PO SCH (05:03)
[2017-09-29] MEDS: ONDANSETRON *ODT* 4 MG TABLET SL PRN ×2 (06:12→14:41)
[2017-09-29] MEDS: NICOTINE 14 MG/24 HOURS TOPICAL PATCH TD SCH (10:14)
[2017-09-29] MEDS: PRENATAL VITAMINS W/ FOLIC ACID TABLET (FP) PO SCH (10:14)
[2017-09-29] MEDS: diazePAM 5 MG TABLET PO SCH ×2 (10:14→22:06)
[2017-09-29] MEDS: LOPERAMIDE HCL 2 MG CAPSULE PO PRN (10:15)
--- NOTE | 2017-09-29 10:35 | PN ---
S CIWA - CIWA Score Nausea/Vomitin Muscle Tremors: 3 Anxiety: 4-Mod. Anxious/Guarded Agitation: 2 Paroxysmal Sweats: 1-Minimal Palms Moist Orientation: 0-Oriented Tacttile Disturbances: 0-None Auditory Disturbances: 0-None Visual Disturbances: 0-None Headache: 0-None Present CIWA-Ar Total Score: 15 BHS Progress Note (SOAP) Subjective: ANXIETY,NAUSEA,VOMITING,DIARRHEA. Objective: 09/29/17 10:36 Vital Signs 09/29/17 09/29/17 09/29/17 03:30 05:58 09:10 Temperature 99.5 F 96.9 F L Pulse Rate 68 64 Respiratory 18 18 18 Rate Blood Pressure 133/81 136/91 Laboratory Tests 09/27/17 09/28/17 09/28/17 21:04 07:30 07:30 WBC 8.5 RBC 4.80 Hgb 14.3 Hct 41.6 MCV 86.6 MCH 29.8 MCHC 34.4 RDW 14.2 Plt Count 274 MPV 8.3 Sodium 138 Potassium 4.1 Chloride 103 Carbon Dioxide 26 Anion Gap 9 BUN 14 D Creatinine 0.9 D Creat Clearance w eGFR > 60 Random Glucose 101 Calcium 9.1 Total Bilirubin 0.6 D AST 15 D ALT 21 Alkaline Phosphatase 115 D Total Protein 8.6 H D Albumin 4.1 D Urine Color Grisel Urine Appearance Cloudy Urine pH 5.0 Ur Specific [place] 1.021 Urine Protein 1+ H Urine Glucose (UA) Negative Urine Ketones Trace H Urine Blood Negative Urine Nitrite Negative Urine Bilirubin Negative Urine Urobilinogen 2.0 Ur Leukocyte Esterase Negative Urine WBC (Auto) 22 Urine RBC (Auto) 45 Urine Bacteria Many Hyaline Casts 146 Urine Mucus Many RPR Titer 09/28/17 07:30 WBC RBC Hgb Hct MCV MCH MCHC RDW Plt Count MPV Sodium Potassium Chloride Carbon Dioxide Anion Gap BUN Creatinine Creat Clearance w eGFR Random Glucose Calcium Total Bilirubin AST ALT Alkaline Phosphatase Total Protein Albumin Urine Color Urine Appearance Urine pH Ur Specific [place] Urine Protein Urine Glucose (UA) Urine Ketones Urine Blood Urine Nitrite Urine Bilirubin Urine Urobilinogen Ur Leukocyte Esterase Urine WBC (Auto) Urine RBC (Auto) Urine Bacteria Hyaline Casts Urine Mucus RPR Titer Nonreactive Assessment: 09/29/17 10:36 WITHDRAWAL SX Plan: CONTINUE DETOX ZOFRAN AND IMODIUM PRN GIVE LOMOTIL IF IMODIUN NOT EFFECTIVE.
[2017-09-29] MEDS: ZOLPIDEM TARTRATE 10 MG TABLET (PARK CARE ONLY) PO PRN (22:06)
[2017-09-29] MEDS: THIAMINE HCL 100 MG TABLET (FP) PO SCH (22:06)
[2017-09-30] MEDS: diazePAM 5 MG TABLET PO PRN (06:32)
[2017-09-30] MEDS: ONDANSETRON *ODT* 4 MG TABLET SL PRN (06:32)
[2017-09-30] MEDS: METHADONE HCL 5 MG TABLET PO SCH (06:32)
[2017-09-30] MEDS: LOPERAMIDE HCL 2 MG CAPSULE PO PRN ×3 (07:58→21:08)
[2017-09-30] MEDS: NICOTINE 14 MG/24 HOURS TOPICAL PATCH TD SCH (10:03)
[2017-09-30] MEDS: PRENATAL VITAMINS W/ FOLIC ACID TABLET (FP) PO SCH (10:03)
[2017-09-30] MEDS: diazePAM 5 MG TABLET PO SCH ×2 (10:03→22:02)
--- NOTE | 2017-09-30 10:42 | PN ---
BHS Progress Note (SOAP) Subjective: ANXIETY,SWEATS. ALERT O X 3. NAD. OOB AMBULATING ON UNIT WITH STEADY GAIT. Objective: 09/30/17 10:42 Vital Signs 09/30/17 09/30/17 09/30/17 03:30 07:23 09:19 Temperature 98.1 F 98.5 F Pulse Rate 78 72 Respiratory 18 18 20 Rate Blood Pressure 137/90 108/73 Laboratory Tests 09/27/17 09/28/17 09/28/17 21:04 07:30 07:30 WBC 8.5 RBC 4.80 Hgb 14.3 Hct 41.6 MCV 86.6 MCH 29.8 MCHC 34.4 RDW 14.2 Plt Count 274 MPV 8.3 Sodium 138 Potassium 4.1 Chloride 103 Carbon Dioxide 26 Anion Gap 9 BUN 14 D Creatinine 0.9 D Creat Clearance w eGFR > 60 Random Glucose 101 Calcium 9.1 Total Bilirubin 0.6 D AST 15 D ALT 21 Alkaline Phosphatase 115 D Total Protein 8.6 H D Albumin 4.1 D Urine Color Grisel Urine Appearance Cloudy Urine pH 5.0 Ur Specific [place] 1.021 Urine Protein 1+ H Urine Glucose (UA) Negative Urine Ketones Trace H Urine Blood Negative Urine Nitrite Negative Urine Bilirubin Negative Urine Urobilinogen 2.0 Ur Leukocyte Esterase Negative Urine WBC (Auto) 22 Urine RBC (Auto) 45 Urine Bacteria Many Hyaline Casts 146 Urine Mucus Many RPR Titer 09/28/17 07:30 WBC RBC Hgb Hct MCV MCH MCHC RDW Plt Count MPV Sodium Potassium Chloride Carbon Dioxide Anion Gap BUN Creatinine Creat Clearance w eGFR Random Glucose Calcium Total Bilirubin AST ALT Alkaline Phosphatase Total Protein Albumin Urine Color Urine Appearance Urine pH Ur Specific [place] Urine Protein Urine Glucose (UA) Urine Ketones Urine Blood Urine Nitrite Urine Bilirubin Urine Urobilinogen Ur Leukocyte Esterase Urine WBC (Auto) Urine RBC (Auto) Urine Bacteria Hyaline Casts Urine Mucus RPR Titer Nonreactive Assessment: 09/30/17 10:42 WITHDRAWAL SX Plan: CONTINUE DETOX
[2017-09-30] MEDS: THIAMINE HCL 100 MG TABLET (FP) PO SCH (22:01)
[2017-09-30] MEDS: ZOLPIDEM TARTRATE 10 MG TABLET (PARK CARE ONLY) PO PRN (22:01)
[2017-10-01] MEDS: METHADONE HCL 5 MG TABLET PO SCH (05:41)
[2017-10-01] MEDS: LOPERAMIDE HCL 2 MG CAPSULE PO PRN (05:41)
[2017-10-01 06:20] VITALS: BP 136/94; PULSE 73; TEMP 96.1
[2017-10-01] MEDS ORDERED: diazePAM 5 MG TABLET PO SCH (10:00)
--- NOTE | 2017-10-01 15:37 | PN ---
BHS Progress Note (SOAP) Subjective: Patient denies current Detox symptoms and reports that he feels well overall. Objective: PATIENT A & O X 3, OBSERVED AMBULATING ON UNIT. NO ACUTE DISTRESS. 10/01/17 15:36 Vital Signs Temperature 96.1 F L 10/01/17 06:19 Pulse Rate 73 10/01/17 06:19 Respiratory Rate 18 10/01/17 06:19 Blood Pressure 136/94 10/01/17 06:19 O2 Sat by Pulse Oximetry (%) Laboratory Tests 09/27/17 09/28/17 09/28/17 21:04 07:30 07:30 WBC 8.5 RBC 4.80 Hgb 14.3 Hct 41.6 MCV 86.6 MCH 29.8 MCHC 34.4 RDW 14.2 Plt Count 274 MPV 8.3 Sodium 138 Potassium 4.1 Chloride 103 Carbon Dioxide 26 Anion Gap 9 BUN 14 D Creatinine 0.9 D Creat Clearance w eGFR > 60 Random Glucose 101 Calcium 9.1 Total Bilirubin 0.6 D AST 15 D ALT 21 Alkaline Phosphatase 115 D Total Protein 8.6 H D Albumin 4.1 D Urine Color Grisel Urine Appearance Cloudy Urine pH 5.0 Ur Specific [place] 1.021 Urine Protein 1+ H Urine Glucose (UA) Negative Urine Ketones Trace H Urine Blood Negative Urine Nitrite Negative Urine Bilirubin Negative Urine Urobilinogen 2.0 Ur Leukocyte Esterase Negative Urine WBC (Auto) 22 Urine RBC (Auto) 45 Urine Bacteria Many Hyaline Casts 146 Urine Mucus Many RPR Titer 09/28/17 07:30 WBC RBC Hgb Hct MCV MCH MCHC RDW Plt Count MPV Sodium Potassium Chloride Carbon Dioxide Anion Gap BUN Creatinine Creat Clearance w eGFR Random Glucose Calcium Total Bilirubin AST ALT Alkaline Phosphatase Total Protein Albumin Urine Color Urine Appearance Urine pH Ur Specific [place] Urine Protein Urine Glucose (UA) Urine Ketones Urine Blood Urine Nitrite Urine Bilirubin Urine Urobilinogen Ur Leukocyte Esterase Urine WBC (Auto) Urine RBC (Auto) Urine Bacteria Hyaline Casts Urine Mucus RPR Titer Nonreactive LABS NOTED. Assessment: 10/01/17 15:36 COMPLETION OF DETOX REGIMEN. Plan: PATIENT SCHEDULED FOR DISCHARGE FROM DETOX UNIT TODAY.
--- NOTE | 2017-10-01 15:39 | DS ---
[facility] Detox Discharge Summary Admission Date: 09/27/17 Discharge Date: 10/01/17 - History Present History: Alcohol Dependence, Opioid Dependence, Sedative Dependence, MMTP Additional Comments: PATIENT RETURNING TO [facility] ([place], [place] AND TO [facility] ([place] FOR AFTERCARE. PATIENT WAS DISCHARGED FROM DETOX UNIT IN STABLE MEDICAL CONDITION. Pertinent Past History: Depression, Anxiety, Nicotine Dependence, MMTP. - Physical Exam Results Vital Signs: Vital Signs Temperature 96.1 F L 10/01/17 06:19 Pulse Rate 73 10/01/17 06:19 Respiratory Rate 18 10/01/17 06:19 Blood Pressure 136/94 10/01/17 06:19 O2 Sat by Pulse Oximetry (%) Pertinent Admission Physical Exam Findings: WITHDRAWAL SYMPTOMS. Laboratory Tests 09/27/17 09/28/17 09/28/17 21:04 07:30 07:30 WBC 8.5 RBC 4.80 Hgb 14.3 Hct 41.6 MCV 86.6 MCH 29.8 MCHC 34.4 RDW 14.2 Plt Count 274 MPV 8.3 Sodium 138 Potassium 4.1 Chloride 103 Carbon Dioxide 26 Anion Gap 9 BUN 14 D Creatinine 0.9 D Creat Clearance w eGFR > 60 Random Glucose 101 Calcium 9.1 Total Bilirubin 0.6 D AST 15 D ALT 21 Alkaline Phosphatase 115 D Total Protein 8.6 H D Albumin 4.1 D Urine Color Grisel Urine Appearance Cloudy Urine pH 5.0 Ur Specific [place] 1.021 Urine Protein 1+ H Urine Glucose (UA) Negative Urine Ketones Trace H Urine Blood Negative Urine Nitrite Negative Urine Bilirubin Negative Urine Urobilinogen 2.0 Ur Leukocyte Esterase Negative Urine WBC (Auto) 22 Urine RBC (Auto) 45 Urine Bacteria Many Hyaline Casts 146 Urine Mucus Many RPR Titer 09/28/17 07:30 WBC RBC Hgb Hct MCV MCH MCHC RDW Plt Count MPV Sodium Potassium Chloride Carbon Dioxide Anion Gap BUN Creatinine Creat Clearance w eGFR Random Glucose Calcium Total Bilirubin AST ALT Alkaline Phosphatase Total Protein Albumin Urine Color Urine Appearance Urine pH Ur Specific [place] Urine Protein Urine Glucose (UA) Urine Ketones Urine Blood Urine Nitrite Urine Bilirubin Urine Urobilinogen Ur Leukocyte Esterase Urine WBC (Auto) Urine RBC (Auto) Urine Bacteria Hyaline Casts Urine Mucus RPR Titer Nonreactive LABS NOTED. - Treatment Hospital Course: Detox Protocol Followed, Detoxed Safely, Responded well, Discharged Condition Good Patient has Accepted a Rehab Referral to: PT. RETURNING TO [facility] ([place], [place] - Diagnosis (1) Alcohol dependence with uncomplicated withdrawal Status: Acute (2) IV drug user Status: Acute (3) Opioid dependence on agonist therapy Status: Acute (4) Sedative, hypnotic or anxiolytic dependence with withdrawal, unspecified Status: Acute (5) Anxiety Status: Acute (6) Nicotine dependence Status: Acute Qualifiers: Nicotine product type: cigarettes Substance use status: in withdrawal Qualified Code(s): F17.213 - Nicotine dependence, cigarettes, with withdrawal (7) Insomnia Status: Acute Qualifiers: Insomnia type: unspecified Qualified Code(s): G47.00 - Insomnia, unspecified - AMA Did Patient Leave Against Medical Advice: No
== END 2017-10-01 08:59 | disposition home or self-care (01) | DRG 773 ==
LOC: YASAS 13:37 → Y3N 19:30
PROVIDERS: ADMIT Internal Medicine; ATTEND Internal Medicine
PROC: HZ2ZZZZ Detoxification Services for Substance Abuse Treatment (ICD-10-PCS; principal; 2017-09-27)
DX: F11.20 Opioid dependence, uncomplicated (principal); F13.230 Sedative, hypnotic or anxiolytic dependence with withdrawal, uncomplicated; F10.20 Alcohol dependence, uncomplicated; F17.210 Nicotine dependence, cigarettes, uncomplicated; F32.9 Major depressive disorder, single episode, unspecified; F41.9 Anxiety disorder, unspecified; G47.00 Insomnia, unspecified; Z59.0 Homelessness
CPT/HCPCS: 36415; 80053; 81003; 81015; 85027; 86593; 93005; 93010; Q0162